=== PATIENT | male | born 1980 | race Asian ===

== ENCOUNTER 2016-05-16 22:33 | Emergency (ER) | payer BC ==
[~2016-05-16] VITALS: Ht 177.8 cm; Wt 68.9 kg
[2016-05-16] MEDS ORDERED: AUGMENTIN 875-1 EAC1 ORAL (22:53)
[2016-05-16] MEDS ORDERED: IBUPROFEN600 MG ORAL (22:53)
[2016-05-16 23:15] VITALS: BP 90/46
[2016-05-16 23:40] VITALS: BP 90/51
--- NOTE | 2016-05-17 00:14 | Emergency Room Report ---
History of Present Illness General Chief Complaint: Upper Respiratory Illness Source: Patient Present Illness HPI 35-year-old male presents to ED for evaluation. States that since last Monday that a productive cough and fever. Was seen by his PMD on Monday and was prescribed Augmentin. States she's been taking the medication but states that he has persistent fever. Resolves with Tylenol/Motrin but then comes back. Notes cough which is productive with greenish phlegm. Denies shortness of breath. Notes good energy good appetite. Denies sick contacts or recent travel. No other aggravating or relieving factors. Denies any other associated symptoms Allergies: Coded Allergies: No Known Allergies (Unverified , 05/16/16) Patient History Past Medical History: none Past Surgical History: none Pertinent Family History: none Social History: Denies: alcohol use, drug use, smoking Immunizations: UTD Reviewed Nursing Documentation: PMH: Agreed, PSxH: Agreed Review of Systems All Other Systems: negative except mentioned in HPI Physical Exam Vital Signs Date Time Temp Pulse Resp B/P Pulse Ox O2 Delivery O2 Flow Rate FiO2 05/16/16 22:41 100.4 93 16 90/46 96 Room Air Sp02 EP Interpretation: reviewed, normal General Appearance: no apparent distress, alert, GCS 15, non-toxic Head: normocephalic, atraumatic Eyes: bilateral eye PERRL, bilateral eye normal inspection ENT: hearing grossly normal, normal pharynx, no angioedema, normal voice Neck: full range of motion, supple/symm/no masses Respiratory: chest non-tender, lungs clear, normal breath sounds, speaking full sentences Cardiovascular #1: regular rate, rhythm, no edema Cardiovascular #2: 2+ carotid (R), 2+ carotid (L), 2+ radial (R), 2+ radial (L) , 2+ dorsalis pedis (R), 2+ dorsalis pedis (L) Gastrointestinal: normal bowel sounds, non tender, soft, non-distended, no guarding, no rebound Rectal: deferred Genitourinary: normal inspection, no CVA tenderness Musculoskeletal: back normal, gait/station normal, normal range of motion, non- tender Neurologic: alert, oriented x3, responsive, motor strength/tone normal, sensory intact, speech normal Psychiatric: judgement/insight normal, memory normal, mood/affect normal, no suicidal/homicidal ideation Reflexes: 3+ bicep (R), 3+ bicep (L), 3+ tricep (R), 3+ tricep (L), 3+ knee (R) , 3+ knee (L) Skin: normal color, no rash, warm/dry, well hydrated Lymphatic: no adenopathy Medical Decision Making Diagnostic Impression: Primary Impression: Upper respiratory infection Qualified Codes: J06.9 - Acute upper respiratory infection, unspecified ER Course Hospital Course 35-year-old male presents to ED with cough and fever x5 days Differential diagnoses include: URI, pharyngitis, otitis media, asthma Clinical course Patient placed on stretcher. After initial history, physical exam reveals a young male in no acute distress. Bilateral TM unremarkable. No pharyngeal erythema. No tonsillar exudates. No lymphadenopathy. lungs clear. abdomen soft. Patient likely has upper respiratory infection. However patient was already placed on antibiotics by her PMD. Was prescribed Augmentin. I encourage patient to complete the antibiotics prescription. Encourage rest and Tylenol/ Motrin for fevers. Diagnosis - URI Stable and discharged home. Continue antibiotics as directed. Instructed to followup with PMD. Return to ED if symptoms recur or worsen Last Vital Signs Date Time Temp Pulse Resp B/P Pulse Ox O2 Delivery O2 Flow Rate FiO2 05/16/16 23:40 100.4 81 16 90/51 96 Room Air Status: improved Disposition: HOME, SELF-CARE Condition: Stable Referrals: NOT CHOSEN IPA/,REFERRING (PCP) Patient Instructions: Upper Respiratory Infection, Adult Additional Instructions: continue abx as directed. take motrin/tylenol every 6 hours as needed for fever. JULIUS MULLINS M.D. May 17, 2016 00:14
== END 2016-05-16 23:30 | disposition home or self-care (01) ==
LOC: EMR 23:15
DX: J06.9 Acute upper respiratory infection, unspecified (principal)
CPT/HCPCS: 99282